=== PATIENT | male | born 1985 | race Caucasian/White ===

== ENCOUNTER 2018-05-29 03:33 | Emergency (ER) | payer OTHER ==
[~2018-05-29] VITALS: Ht 162.6 cm; Wt 108.0 kg
[2018-05-29 04:42] LABS: BASOPHIL % 1.1 % (0-2); PLATELET COUNT 288 x10^3mcL (130-400)
[2018-05-29 04:50] LABS: CALCIUM 8.9 mg/dL (8.5-10.1); CHLORIDE SERUM 106 mmol/L (98-107); GFR1 > 60 mL/min; GLUCOSE SERUM 94 mg/dL (74-106); POTASSIUM SERUM 3.8 mmol/L (3.5-5.1); SODIUM SERUM 141 mmol/L (136-145)
[2018-05-29 04:57] LABS: ALBUMIN 3.6 g/dL (3.4-5.0); ALKALINE PHOSPHATASE 89 U/L (46-116); ALT/SGPT 44 U/L (16-63); AST/SGOT 26 U/L (15-37); BILIRUBIN TOTAL 0.3 mg/dL (0.20-1.00); CHOLESTEROL 149 mg/dL (<200); CHOLESTEROL/HDL RATIO 3.7; HDL CHOLESTEROL 40 mg/dL (40-60); TOTAL PROTEIN, SERUM 7.5 g/dL (6.4-8.2); TRIGLYCERIDES 71 mg/dL (<150)
[2018-05-29 06:11] LABS: AMPHETAMINE QUAL UR POSITIVE (See below)
[2018-05-29 06:28] VITALS: BP 100/61
== END 2018-05-29 06:28 | disposition home or self-care (01) ==
LOC: ED 03:33
PROVIDERS: Emergency Medicine
DX: R07.89 Other chest pain (principal); F15.10 Other stimulant abuse, uncomplicated; R06.02 Shortness of breath; F17.210 Nicotine dependence, cigarettes, uncomplicated
CPT/HCPCS: 36415; Q0092

== ENCOUNTER 2019-02-09 21:51 | Emergency (ER) | payer OTHER ==
[~2019-02-09] VITALS: Ht 162.6 cm; Wt 112.0 kg
[2019-02-09 22:11] VITALS: Ht 162.6 cm; Wt 112.0 kg
[2019-02-09 23:26] LABS: BASOPHIL % 0.9 % (0-2); PLATELET COUNT 300 x10^3mcL (130-400); RED CELL DISTRIBUTION WIDTH 13.6 % (11.5-14.5)
[2019-02-10 00:25] VITALS: BP 126/64
== END 2019-02-10 00:25 | disposition home or self-care (01) ==
LOC: ED 21:51
PROVIDERS: Emergency Medicine
DX: K21.9 Gastro-esophageal reflux disease without esophagitis (principal); R00.2 Palpitations; F15.10 Other stimulant abuse, uncomplicated
CPT/HCPCS: 36415; 83880; Q0092